=== PATIENT | male | born 1950 | race Caucasian/White ===

== ENCOUNTER → 2020-01-05 | Outpatient (CLI) | payer MEDICARE, OTHER ==
[~2020-01-05] MED LIST: KEFLEX500 MG PO
[2020-01-05 11:46] LABS: HEMATOCRIT 46.4 % (42.0-52.0); HEMOGLOBIN 15.3 g/dl (14.0-18.0); MEAN CELL VOLUME 96.7 fl (80.0-94.0); MEAN CORPUSCULAR HGB 31.9 pg (27.0-31.0); MEAN PLATELET VOLUME 9.5 fl (9.6-12.3); PLATELET COUNT AUTOMATED 164 10*3/uL (130-400); RED CELL DISTRI WIDTH 12.2 % (0-14.5); RETICULOCYTE % 0.96 % (0.50-2.50); WHITE BLOOD COUNT 6.2 10*3/uL (4.8-10.8)
[2020-01-05 12:09] LABS: ALBUMIN 3.9 gm/dl (3.1-4.5); ALKALINE PHOSPHATASE 91 U/L (45-117); BUN 14 mg/dl (7-24); CHLORIDE 107 mmol/L (98-107); CHOLESTEROL 143 mg/dL (<200); CPK 146 U/L (39-308); CREATININE 1.04 mg/dL (0.70-1.30); GAMMA GLUTAMYL TRANSPEPTIDASE 6 U/L (15-85); HDL CHOLESTEROL 61 mg/dl (40-60); IRON 100 ug/dL (65-175); LDL CHOLESTEROL 63 mg/dL (9-159); SGPT/ALT 27 U/L (12-78); SODIUM 140 mmol/L (136-145); TOTAL IRON BINDING CAPACITY 287 ug/dl (250-450); TRIGLYCERIDES 97 mg/dl (<150); URIC ACID 4.2 mg/dL (3.5-7.2); VLDL CHOLESTEROL 19 mg/dL (6-40)
[2020-01-05 12:16] LABS: SGOT/AST 21 IU/L (3-35); TOTAL PROTEIN 7.4 gm/dL (6.4-8.2)
[2020-01-05 13:01] LABS: FERRITIN 62.3 ng/mL (22.0-322.0)
[2020-01-05 13:45] LABS: BILIRUBIN NEGATIVE (NEGATIVE); BLOOD TRACE-INTACT (NEGATIVE); CLARITY CLEAR (CLEAR); COLOR YELLOW (YELLOW); GLUCOSE NEGATIVE (NEGATIVE); KETONE NEGATIVE (NEGATIVE)
[2020-01-05 13:46] LABS: LEUKO ESTERASE NEGATIVE (NEGATIVE); NITRITE NEGATIVE (NEGATIVE); RBC 0-2 rbc/hpf (0-2); UROBILINOGEN 0.2 E.U./dl (0.2-1.0)
[2020-01-05 14:28] LABS: ATYPICAL LYMPHS 2 % (0-0); BASOPHILS 1 % (0-1); TOTAL CELLS COUNTED 100 #CELLS
[2020-01-05 14:31] LABS: PLATELET SUFFICIENCY NORMAL (NORMAL)
[2020-01-06 08:07] LABS: RHEUMATOID ARTHRITIS FACTOR <10.0 IU/mL (0.0-13.9)
[2020-01-06 12:09] LABS: ANTI-DSDNA ANTIBODIES 5 IU/mL (0-9)
[2020-01-06 14:07] LABS: A/G RATIO 1.3 (0.7-1.7); ALPHA-1-GLOBULIN 0.2 g/dL (0.0-0.4); ALPHA-2-GLOBULIN 0.8 g/dL (0.4-1.0); BETA GLOBULIN 0.9 g/dL (0.7-1.3); GAMMA GLOBULIN 1.1 g/dL (0.4-1.8); M-SPIKE Not Observed g/dL (Not Observed)
== END | disposition home or self-care (01) ==
LOC: LAB 10:49
PROVIDERS: Family Medicine
DX: R53.83 Other fatigue (principal); E55.9 Vitamin D deficiency, unspecified; R79.89 Other specified abnormal findings of blood chemistry; Z79.899 Other long term (current) drug therapy

== ENCOUNTER → 2020-05-01 | Outpatient (CLI) | payer MEDICARE, OTHER ==
[2020-05-01 08:02] LABS: BILIRUBIN NEGATIVE (NEGATIVE); BLOOD NEGATIVE (NEGATIVE); CLARITY CLEAR (CLEAR); COLOR YELLOW (YELLOW); EPITHELIAL CELLS 0-2; GLUCOSE NEGATIVE (NEGATIVE); KETONE NEGATIVE (NEGATIVE); LEUKO ESTERASE NEGATIVE (NEGATIVE); NITRITE NEGATIVE (NEGATIVE); UROBILINOGEN 0.2 E.U./dl (0.2-1.0); WBC 0-2 wbc/hpf (0-5)
[2020-05-01 08:04] LABS: BASO % 0.4 % (0.0-1.0); EOS # 0.1 10*3/uL (0.0-0.4); EOS % 2.3 % (1.0-4.0); HEMATOCRIT 47.2 % (42.0-52.0); LYMPH # 2.4 10*3/uL (1.3-4.4); MEAN CELL VOLUME 96.9 fl (80.0-94.0); MEAN CORPUSCULAR HGB CONC 33.1 g/dl (33.0-37.0); MEAN PLATELET VOLUME 9.7 fl (9.6-12.3); MONO # 0.6 10*3/uL (0.1-1.0); MONO % 10.5 % (3.0-9.0); NEUT # 2.2 10*3/uL (2.3-7.9); NEUT % 41.8 % (47.0-73.0); PLATELET COUNT AUTOMATED 150 10*3/uL (130-400); RED BLOOD COUNT 4.87 10*6/uL (4.50-5.90); RED CELL DISTRI WIDTH 12.2 % (0-14.5); WHITE BLOOD COUNT 5.3 10*3/uL (4.8-10.8)
[2020-05-01 08:20] LABS: ALBUMIN 3.7 gm/dl (3.1-4.5); ALKALINE PHOSPHATASE 92 U/L (45-117); BUN 21 mg/dl (7-24); CHLORIDE 108 mmol/L (98-107); CREATININE 1.09 mg/dL (0.70-1.30); POTASSIUM 4.1 mmol/L (3.5-5.1); SGOT/AST 21 IU/L (3-35); SGPT/ALT 27 U/L (12-78); SODIUM 141 mmol/L (136-145); TOTAL PROTEIN 7.2 gm/dL (6.4-8.2)
== END | disposition home or self-care (01) ==
LOC: LAB 07:20 → CT 08:00
PROVIDERS: Urology
DX: D40.0 Neoplasm of uncertain behavior of prostate (principal); R53.83 Other fatigue; R31.9 Hematuria, unspecified

== ENCOUNTER → 2020-06-05 | Outpatient (CLI) | payer MEDICARE, OTHER | END | disposition home or self-care (01) | LOC: COVID19 09:10 | DX: R50.9 Fever, unspecified (principal); Z20.828 Contact with and (suspected) exposure to other viral communicable diseases ==

== ENCOUNTER → 2020-06-09 | Outpatient (CLI) | payer MEDICARE, OTHER ==
[2020-06-09 07:45] LABS: BASO % 0.4 % (0.0-1.0); EOS # 0.1 10*3/uL (0.0-0.4); HEMATOCRIT 44.1 % (42.0-52.0); LYMPH # 1.7 10*3/uL (1.3-4.4); LYMPH % 24.7 % (27.0-41.0); MEAN CELL VOLUME 96.1 fl (80.0-94.0); MEAN CORPUSCULAR HGB 31.4 pg (27.0-31.0); MEAN CORPUSCULAR HGB CONC 32.7 g/dl (33.0-37.0); MEAN PLATELET VOLUME 8.8 fl (9.6-12.3); MONO # 0.6 10*3/uL (0.1-1.0); MONO % 8.3 % (3.0-9.0); NEUT # 4.4 10*3/uL (2.3-7.9); NEUT % 64.3 % (47.0-73.0); PLATELET COUNT AUTOMATED 193 10*3/uL (130-400); RED BLOOD COUNT 4.59 10*6/uL (4.50-5.90); RED CELL DISTRI WIDTH 11.8 % (0-14.5); RETICULOCYTE % 0.75 % (0.50-2.50); WHITE BLOOD COUNT 6.9 10*3/uL (4.8-10.8)
[2020-06-09 08:02] LABS: BILIRUBIN NEGATIVE (NEGATIVE); BLOOD NEGATIVE (NEGATIVE); CLARITY CLEAR (CLEAR); COLOR YELLOW (YELLOW); GLUCOSE NEGATIVE (NEGATIVE); KETONE NEGATIVE (NEGATIVE); LEUKO ESTERASE NEGATIVE (NEGATIVE); MUCOUS 1+; NITRITE NEGATIVE (NEGATIVE); SPECIFIC GRAVITY 1.025 (1.005-1.030); UROBILINOGEN 0.2 E.U./dl (0.2-1.0)
[2020-06-09 08:13] LABS: ALBUMIN 3.4 gm/dl (3.1-4.5); ALKALINE PHOSPHATASE 109 U/L (45-117); BUN 18 mg/dl (7-24); CHLORIDE 108 mmol/L (98-107); CHOLESTEROL 95 mg/dL (<200); CREATININE 1.09 mg/dL (0.70-1.30); HDL CHOLESTEROL 45 mg/dl (40-60); IRON 68 ug/dL (65-175); LDL CHOLESTEROL 35 mg/dL (9-159); POTASSIUM 4.2 mmol/L (3.5-5.1); SGOT/AST 26 IU/L (3-35); SGPT/ALT 34 U/L (12-78); SODIUM 139 mmol/L (136-145); TOTAL IRON BINDING CAPACITY 277 ug/dl (250-450); TOTAL PROTEIN 7.3 gm/dL (6.4-8.2); TRIGLYCERIDES 73 mg/dl (<150); VLDL CHOLESTEROL 15 mg/dL (6-40)
== END | disposition home or self-care (01) ==
LOC: LAB 07:20
PROVIDERS: Family Medicine
DX: R79.89 Other specified abnormal findings of blood chemistry (principal); Z79.899 Other long term (current) drug therapy

== ENCOUNTER → 2021-01-24 | Outpatient (CLI) | payer MEDICARE, OTHER ==
[2021-01-24 16:10] LABS: BILIRUBIN Negative (Negative); BLOOD Negative (Negative); CLARITY Clear (Clear); COLOR Yellow (Yellow); GLUCOSE Negative (Negative); KETONE Negative (Negative); LEUKO ESTERASE Negative (Negative); NITRITE Negative (Negative); PH 6.5 (4.5-8.0); SPECIFIC GRAVITY 1.015 (1.001-1.030); UROBILINOGEN 0.2 E.U./dl (0.0-1.0)
[2021-01-24 16:12] LABS: BASO % 0.5 % (0.0-1.0); EOS # 0.1 10*3/uL (0.0-0.4); EOS % 1.7 % (1.0-4.0); HEMATOCRIT 45.1 % (42.0-52.0); LYMPH # 2.5 10*3/uL (1.3-4.4); LYMPH % 38.4 % (27.0-41.0); MEAN CELL VOLUME 97.4 fl (80.0-94.0); MEAN CORPUSCULAR HGB 32.2 pg (27.0-31.0); MEAN PLATELET VOLUME 9.7 fl (9.6-12.3); MONO # 0.6 10*3/uL (0.1-1.0); MONO % 9.1 % (3.0-9.0); NEUT # 3.2 10*3/uL (2.3-7.9); PLATELET COUNT AUTOMATED 153 10*3/uL (130-400); RED BLOOD COUNT 4.63 10*6/uL (4.50-5.90); RED CELL DISTRI WIDTH 12.1 % (0-14.5); RETICULOCYTE % 0.74 % (0.50-2.50); WHITE BLOOD COUNT 6.4 10*3/uL (4.8-10.8)
[2021-01-24 16:18] LABS: BACTERIA TRACE; EPITHELIAL CELLS 0-2; RBC 0-2 rbc/hpf (0-2); WBC 0-2 wbc/hpf (0-5)
[2021-01-24 16:43] LABS: ALBUMIN 3.9 gm/dl (3.1-4.5); ALKALINE PHOSPHATASE 90 U/L (45-117); BUN 19 mg/dl (7-24); CHLORIDE 108 mmol/L (98-107); CHOLESTEROL 145 mg/dL (<200); CREATININE 1.02 mg/dL (0.70-1.30); GAMMA GLUTAMYL TRANSPEPTIDASE 11 U/L (15-85); HDL CHOLESTEROL 65 mg/dl (40-60); IRON 88 ug/dL (65-175); LDL CHOLESTEROL 69 mg/dL (9-159); POTASSIUM 4.1 mmol/L (3.5-5.1); SGOT/AST 32 IU/L (3-35); SGPT/ALT 37 U/L (12-78); SODIUM 142 mmol/L (136-145); TOTAL PROTEIN 7.2 gm/dL (6.4-8.2); TRIGLYCERIDES 55 mg/dl (<150); VLDL CHOLESTEROL 11 mg/dL (6-40)
[2021-01-24 16:50] LABS: CPK 146 U/L (39-308); TOTAL IRON BINDING CAPACITY 303 ug/dl (250-450)
== END | disposition home or self-care (01) ==
LOC: LAB 14:57
PROVIDERS: ATTEND Family Medicine
DX: Z12.5 Encounter for screening for malignant neoplasm of prostate (principal); E78.5 Hyperlipidemia, unspecified; R79.89 Other specified abnormal findings of blood chemistry; R53.83 Other fatigue; R74.8 Abnormal levels of other serum enzymes

== ENCOUNTER → 2021-05-08 | Outpatient (CLI) | payer MEDICARE, OTHER ==
[2021-05-08 16:26] LABS: BASO % 0.5 % (0.0-1.0); EOS # 0.1 10*3/uL (0.0-0.4); EOS % 2.3 % (1.0-4.0); HEMATOCRIT 43.5 % (42.0-52.0); LYMPH # 2.4 10*3/uL (1.3-4.4); LYMPH % 42.3 % (27.0-41.0); MEAN CELL VOLUME 97.1 fl (80.0-94.0); MEAN CORPUSCULAR HGB 32.6 pg (27.0-31.0); MEAN CORPUSCULAR HGB CONC 33.6 g/dl (33.0-37.0); MEAN PLATELET VOLUME 9.4 fl (9.6-12.3); MONO # 0.7 10*3/uL (0.1-1.0); MONO % 11.6 % (3.0-9.0); NEUT # 2.4 10*3/uL (2.3-7.9); NEUT % 43.1 % (47.0-73.0); PLATELET COUNT AUTOMATED 153 10*3/uL (130-400); RED BLOOD COUNT 4.48 10*6/uL (4.50-5.90); RED CELL DISTRI WIDTH 12.2 % (0-14.5); WHITE BLOOD COUNT 5.7 10*3/uL (4.8-10.8)
[2021-05-08 16:31] LABS: BILIRUBIN Negative (Negative); BLOOD Negative (Negative); CLARITY Clear (Clear); COLOR Yellow (Yellow); GLUCOSE Negative (Negative); KETONE Trace (Negative); LEUKO ESTERASE Negative (Negative); NITRITE Negative (Negative); PH 5.5 (4.5-8.0); SPECIFIC GRAVITY 1.025 (1.001-1.030)
[2021-05-08 16:43] LABS: ALBUMIN 3.4 gm/dl (3.1-4.5); ALKALINE PHOSPHATASE 109 U/L (45-117); BUN 23 mg/dl (7-24); CHLORIDE 108 mmol/L (98-107); CHOLESTEROL 142 mg/dL (<200); CREATININE 0.95 mg/dL (0.70-1.30); GAMMA GLUTAMYL TRANSPEPTIDASE 4 U/L (15-85); IRON 55 ug/dL (65-175); LDL CHOLESTEROL 69 mg/dL (9-159); POTASSIUM 3.9 mmol/L (3.5-5.1); SGOT/AST 18 IU/L (3-35); SGPT/ALT 22 U/L (12-78); SODIUM 141 mmol/L (136-145); TOTAL IRON BINDING CAPACITY 301 ug/dl (250-450); TOTAL PROTEIN 6.9 gm/dL (6.4-8.2); TRIGLYCERIDES 88 mg/dl (<150)
[2021-05-08 16:46] LABS: EPITHELIAL CELLS 0-2
[2021-05-08 16:47] LABS: BACTERIA 1+; MUCOUS 1+
[2021-05-08 16:51] LABS: CPK 134 U/L (39-308)
[2021-05-08 19:40] LABS: FERRITIN 39.5 ng/mL (22.0-322.0); VITAMIN D, 25-HYDROXY 29.3 ng/mL (30-100)
== END | disposition home or self-care (01) ==
LOC: LAB 15:55
PROVIDERS: ATTEND Family Medicine
DX: Z12.5 Encounter for screening for malignant neoplasm of prostate (principal); E55.9 Vitamin D deficiency, unspecified; E79.8 Other disorders of purine and pyrimidine metabolism; E78.5 Hyperlipidemia, unspecified; R53.83 Other fatigue; R79.89 Other specified abnormal findings of blood chemistry

== ENCOUNTER → 2022-07-17 | Outpatient (CLI) | payer MEDICARE, OTHER ==
[2022-07-17 12:52] LABS: BASO % 0.6 % (0.0-1.0); BILIRUBIN Negative (Negative); BLOOD Negative (Negative); CLARITY Clear (Clear); COLOR Yellow (Yellow); EOS % 0.8 % (1.0-4.0); GLUCOSE Negative (Negative); HEMATOCRIT 45.5 % (42.0-52.0); KETONE Negative (Negative); LEUKO ESTERASE Negative (Negative); LYMPH # 1.8 10*3/uL (1.3-4.4); MEAN CELL VOLUME 98.7 fl (80.0-94.0); MEAN CORPUSCULAR HGB CONC 33.4 g/dl (33.0-37.0); MEAN PLATELET VOLUME 9.9 fl (9.6-12.3); MONO # 0.5 10*3/uL (0.1-1.0); MONO % 10.4 % (3.0-9.0); NEUT # 2.8 10*3/uL (2.3-7.9); NITRITE Negative (Negative); PLATELET COUNT AUTOMATED 148 10*3/uL (130-400); RED BLOOD COUNT 4.61 10*6/uL (4.50-5.90); RED CELL DISTRI WIDTH 12.3 % (0-14.5); RETICULOCYTE % 1.11 % (0.50-2.50); SPECIFIC GRAVITY 1.015 (1.001-1.030); UROBILINOGEN 0.2 E.U./dl (0.0-1.0); WHITE BLOOD COUNT 5.2 10*3/uL (4.8-10.8)
[2022-07-17 13:16] LABS: EPITHELIAL CELLS 0-2; WBC 0-2 wbc/hpf (0-5)
[2022-07-17 13:19] LABS: ALKALINE PHOSPHATASE 90 U/L (45-117); BUN 16 mg/dl (7-24); CHLORIDE 108 mmol/L (98-107); CHOLESTEROL 154 mg/dL (<200); CREATININE 1.04 mg/dL (0.70-1.30); GAMMA GLUTAMYL TRANSPEPTIDASE 16 U/L (15-85); IRON 100 ug/dL (65-175); LDL CHOLESTEROL 70 mg/dL (9-159); POTASSIUM 4.4 mmol/L (3.5-5.1); SGOT/AST 23 IU/L (3-35); SGPT/ALT 26 U/L (12-78); SODIUM 140 mmol/L (136-145); TOTAL PROTEIN 7.2 gm/dL (6.4-8.2); TRIGLYCERIDES 107 mg/dl (<150)
[2022-07-17 13:36] LABS: FERRITIN 53.5 ng/mL (22.0-322.0); VITAMIN D, 25-HYDROXY 31.4 ng/mL (30-100)
== END | disposition home or self-care (01) ==
LOC: LAB 12:04
PROVIDERS: ATTEND Family Medicine
DX: Z12.5 Encounter for screening for malignant neoplasm of prostate (principal); E78.5 Hyperlipidemia, unspecified; E55.9 Vitamin D deficiency, unspecified; R79.89 Other specified abnormal findings of blood chemistry; R74.8 Abnormal levels of other serum enzymes; R53.83 Other fatigue

== ENCOUNTER → 2023-02-19 | Outpatient (CLI) | payer MEDICARE, OTHER ==
[2023-02-19 09:01] LABS: BASO % 0.3 % (0.0-1.0); EOS # 0.1 10*3/uL (0.0-0.4); EOS % 0.8 % (1.0-4.0); HEMATOCRIT 46.7 % (42.0-52.0); LYMPH # 2.6 10*3/uL (1.3-4.4); LYMPH % 42.9 % (27.0-41.0); MEAN CELL VOLUME 98.5 fl (80.0-94.0); MEAN CORPUSCULAR HGB 33.1 pg (27.0-31.0); MEAN CORPUSCULAR HGB CONC 33.6 g/dl (33.0-37.0); MEAN PLATELET VOLUME 9.4 fl (9.6-12.3); MONO # 0.6 10*3/uL (0.1-1.0); MONO % 10.6 % (3.0-9.0); NEUT # 2.7 10*3/uL (2.3-7.9); NEUT % 45.2 % (47.0-73.0); PLATELET COUNT AUTOMATED 143 10*3/uL (130-400); RED BLOOD COUNT 4.74 10*6/uL (4.50-5.90); RED CELL DISTRI WIDTH 12.1 % (0-14.5); RETICULOCYTE % 0.99 % (0.50-2.50)
[2023-02-19 09:21] LABS: BILIRUBIN Negative (Negative); BLOOD Negative (Negative); CLARITY Clear (Clear); COLOR Yellow (Yellow); GLUCOSE Negative (Negative); KETONE Negative (Negative); LEUKO ESTERASE Negative (Negative); NITRITE Negative (Negative); PH 6.5 (4.5-8.0); SPECIFIC GRAVITY <= 1.005 (1.001-1.030); UROBILINOGEN 0.2 E.U./dl (0.0-1.0)
[2023-02-19 09:41] LABS: RBC 0-2 rbc/hpf (0-2); WBC 0-2 wbc/hpf (0-5)
[2023-02-19 10:06] LABS: ALKALINE PHOSPHATASE 89 U/L (46-116); BUN 14 mg/dl (9-23); CHLORIDE 105 mmol/L (98-107); CHOLESTEROL 141 mg/dL (<200); GAMMA GLUTAMYL TRANSPEPTIDASE 15 U/L (0-73); LDL CHOLESTEROL 70 mg/dL (9-159); POTASSIUM 4.6 mmol/L (3.4-5.1); SGPT/ALT 17 U/L (10-49); THYROID STIM HORMONE (HS) 2.219 uIU/ml (0.550-4.780); TOTAL PROTEIN 7.2 gm/dL (6.0-8.0); TRIGLYCERIDES 74 mg/dl (<150); VITAMIN D, 25-HYDROXY 34.7 ng/mL (30-100)
== END | disposition home or self-care (01) ==
LOC: LAB 08:41
PROVIDERS: ATTEND Family Medicine
DX: Z12.5 Encounter for screening for malignant neoplasm of prostate (principal); R79.89 Other specified abnormal findings of blood chemistry; E78.5 Hyperlipidemia, unspecified; E55.9 Vitamin D deficiency, unspecified; R53.83 Other fatigue; R74.8 Abnormal levels of other serum enzymes

== ENCOUNTER → 2023-05-08 | Day surgery (SDC) | payer MEDICARE, OTHER ==
[2023-05-06 12:53] LABS: BUN 18 mg/dl (9-23); CHLORIDE 106 mmol/L (98-107); POTASSIUM 4.1 mmol/L (3.4-5.1)
[~2023-05-08] VITALS: Ht 172.7 cm; Wt 74.8 kg
[~2023-05-08] MED LIST changes: +ATORVASTATIN CA40 M1 PO
[2023-05-08 08:25] VITALS: BP 126/68
[2023-05-08 09:37] VITALS: BP 104/58
[2023-05-08 09:52] VITALS: BP 112/64
[2023-05-08 10:06] VITALS: BP 114/64
[2023-05-09 11:07] LABS: ACID FAST SPEC PROCESSING Tissue Grinding (.)
== END ==
LOC: SDC 05-06 08:45
PROVIDERS: ATTEND Orthopaedic Surgery
DX: M20.5X1 Other deformities of toe(s) (acquired), right foot (principal); R22.41 Localized swelling, mass and lump, right lower limb; E78.00 Pure hypercholesterolemia, unspecified

== ENCOUNTER → 2024-01-02 | Outpatient (CLI) | payer MEDICARE, OTHER ==
[2024-01-02 08:34] LABS: BILIRUBIN Negative (Negative); BLOOD Negative (Negative); CLARITY Clear (Clear); COLOR Yellow (Yellow); GLUCOSE Negative (Negative); KETONE Negative (Negative); LEUKO ESTERASE Negative (Negative); NITRITE Negative (Negative); SPECIFIC GRAVITY <= 1.005 (1.001-1.030); UROBILINOGEN 0.2 E.U./dl (0.0-1.0)
[2024-01-02 08:35] LABS: BASO % 0.5 % (0.0-1.0); EOS # 0.1 10*3/uL (0.0-0.4); EOS % 1.5 % (1.0-4.0); HEMATOCRIT 46.9 % (42.0-52.0); LYMPH # 2.4 10*3/uL (1.3-4.4); LYMPH % 36.9 % (27.0-41.0); MEAN CELL VOLUME 96.5 fl (80.0-94.0); MEAN CORPUSCULAR HGB 31.3 pg (27.0-31.0); MEAN CORPUSCULAR HGB CONC 32.4 g/dl (33.0-37.0); MEAN PLATELET VOLUME 9.2 fl (9.6-12.3); MONO # 0.6 10*3/uL (0.1-1.0); MONO % 9.6 % (3.0-9.0); NEUT # 3.4 10*3/uL (2.3-7.9); NEUT % 51.3 % (47.0-73.0); PLATELET COUNT AUTOMATED 178 10*3/uL (130-400); RED BLOOD COUNT 4.86 10*6/uL (4.50-5.90); RED CELL DISTRI WIDTH 13.3 % (0-14.5); RETICULOCYTE % 1.03 % (0.50-2.50); WHITE BLOOD COUNT 6.6 10*3/uL (4.8-10.8)
[2024-01-02 08:52] LABS: EPITHELIAL CELLS 0-2; RBC 0-2 rbc/hpf (0-2)
[2024-01-02 08:58] LABS: VITAMIN D, 25-HYDROXY 30.4 ng/mL (30-100)
[2024-01-02 08:59] LABS: ALKALINE PHOSPHATASE 95 U/L (46-116); BUN 11 mg/dl (9-23); CHLORIDE 104 mmol/L (98-107); CHOLESTEROL 144 mg/dL (<200); GAMMA GLUTAMYL TRANSPEPTIDASE 16 U/L (0-73); LDL CHOLESTEROL 75 mg/dL (9-159); POTASSIUM 4.1 mmol/L (3.4-5.1); SGPT/ALT 18 U/L (5-49); T3 UPTAKE 28.4 % (22.4-36.7); TOTAL PROTEIN 7.4 gm/dL (6.0-8.0); TRIGLYCERIDES 85 mg/dl (<150)
== END | disposition home or self-care (01) ==
LOC: LAB 07:36
PROVIDERS: ATTEND Family Medicine
DX: E78.5 Hyperlipidemia, unspecified (principal); E55.9 Vitamin D deficiency, unspecified; R79.89 Other specified abnormal findings of blood chemistry

== ENCOUNTER → 2024-01-19 | Outpatient (CLI) | payer MEDICARE, OTHER | LOC: US 01:52 | PROVIDERS: ATTEND Family Medicine | DX: R16.0 Hepatomegaly, not elsewhere classified (principal); E78.5 Hyperlipidemia, unspecified ==

== ENCOUNTER → 2024-02-09 | Outpatient (CLI) | payer MEDICARE, OTHER ==
[~2024-02-09] MED LIST changes: +SINCALIDE 1.5 MCG in SODIUM CHLORIDE 0.9% 50 ML IV ONE
== END | disposition home or self-care (01) ==
LOC: NM 01:44
PROVIDERS: ATTEND Family Medicine
DX: R10.84 Generalized abdominal pain (principal)

== ENCOUNTER 2024-07-04 10:09 | Emergency (ER) | payer MEDICARE, OTHER ==
[~2024-07-04] VITALS: Ht 175.2 cm; Wt 77.1 kg
[~2024-07-04 10:09] MED LIST changes: -SINCALIDE 1.5 MCG in SODIUM CHLORIDE 0.9% 50 ML IV ONE
[2024-07-04] MEDS ORDERED: Tdap Vaccine 0.5 ML SYR (Adult Vaccine) IM ONE (11:20)
[2024-07-04] MEDS ORDERED: CEPHALEXIN500 M1 PO (12:49)
[2024-07-04] MEDS ORDERED: NAPROSYN500 MG PO (12:49)
[2024-07-04] MEDS ORDERED: CEPHALEXIN 500 MG CAP PO ONE (12:50)
== END 2024-07-04 13:30 | disposition home or self-care (01) ==
LOC: ED 10:09
DX: S61.432A Puncture wound without foreign body of left hand, initial encounter (principal); S69.92XA Unspecified injury of left wrist, hand and finger(s), initial encounter; E78.00 Pure hypercholesterolemia, unspecified; Z98.890 Other specified postprocedural states; X58.XXXA Exposure to other specified factors, initial encounter; Y93.89 Activity, other specified; Y92.89 Other specified places as the place of occurrence of the external cause; Y99.8 Other external cause status

== ENCOUNTER → 2024-08-09 | Outpatient (CLI) | payer MEDICARE, OTHER ==
[~2024-08-09] MED LIST changes: +CEPHALEXIN500 M1 PO; +NAPROSYN500 MG PO
[2024-08-09 12:46] LABS: BASO % 0.5 % (0.0-1.0); EOS # 0.1 10*3/uL (0.0-0.4); EOS % 0.9 % (1.0-4.0); HEMATOCRIT 44.3 % (42.0-52.0); LYMPH # 2.1 10*3/uL (1.3-4.4); LYMPH % 35.7 % (27.0-41.0); MEAN CORPUSCULAR HGB 32.5 pg (27.0-31.0); MEAN CORPUSCULAR HGB CONC 33.2 g/dl (33.0-37.0); MEAN PLATELET VOLUME 9.4 fl (9.6-12.3); MONO # 0.5 10*3/uL (0.1-1.0); MONO % 8.3 % (3.0-9.0); NEUT # 3.2 10*3/uL (2.3-7.9); NEUT % 54.3 % (47.0-73.0); PLATELET COUNT AUTOMATED 156 10*3/uL (130-400); RED BLOOD COUNT 4.52 10*6/uL (4.50-5.90); RED CELL DISTRI WIDTH 12.6 % (0-14.5); RETICULOCYTE % 1.34 % (0.50-2.50); WHITE BLOOD COUNT 5.9 10*3/uL (4.8-10.8)
[2024-08-09 12:52] LABS: BILIRUBIN Negative (Negative); BLOOD Negative (Negative); CLARITY Clear (Clear); COLOR Yellow (Yellow); GLUCOSE Negative (Negative); KETONE Negative (Negative); LEUKO ESTERASE Negative (Negative); NITRITE Negative (Negative); PH 6.5 (4.5-8.0); SPECIFIC GRAVITY 1.015 (1.001-1.030); UROBILINOGEN 0.2 E.U./dl (0.0-1.0)
[2024-08-09 13:17] LABS: ALKALINE PHOSPHATASE 93 U/L (46-116); BUN 15 mg/dl (9-23); CHLORIDE 105 mmol/L (98-107); CHOLESTEROL 129 mg/dL (<200); GAMMA GLUTAMYL TRANSPEPTIDASE 14 U/L (0-73); LDL CHOLESTEROL 59 mg/dL (9-159); POTASSIUM 4.5 mmol/L (3.4-5.1); SGPT/ALT 14 U/L (5-49); TOTAL PROTEIN 7.1 gm/dL (6.0-8.0); TRIGLYCERIDES 92 mg/dl (<150)
[2024-08-09 13:19] LABS: VITAMIN D, 25-HYDROXY 38.6 ng/mL (30-100)
[2024-08-09 13:49] LABS: EPITHELIAL CELLS 0-2
== END | disposition home or self-care (01) ==
LOC: LAB 12:14
PROVIDERS: ATTEND Family Medicine
DX: Z12.5 Encounter for screening for malignant neoplasm of prostate (principal); R79.89 Other specified abnormal findings of blood chemistry; R53.83 Other fatigue; E78.5 Hyperlipidemia, unspecified; E55.9 Vitamin D deficiency, unspecified

== ENCOUNTER → 2025-03-07 | Outpatient (CLI) | payer MEDICARE, OTHER ==
[2025-03-07 08:04] LABS: BASO % 0.4 % (0.0-1.0); EOS # 0.1 10*3/uL (0.0-0.4); HEMATOCRIT 47.3 % (42.0-52.0); MEAN CELL VOLUME 96.9 fl (80.0-94.0); MEAN CORPUSCULAR HGB 32.2 pg (27.0-31.0); MEAN CORPUSCULAR HGB CONC 33.2 g/dl (33.0-37.0); MEAN PLATELET VOLUME 9.3 fl (9.6-12.3); MONO # 0.6 10*3/uL (0.1-1.0); MONO % 8.8 % (3.0-9.0); NEUT # 3.5 10*3/uL (2.3-7.9); NEUT % 51.8 % (47.0-73.0); PLATELET COUNT AUTOMATED 147 10*3/uL (130-400); RED BLOOD COUNT 4.88 10*6/uL (4.50-5.90); RED CELL DISTRI WIDTH 12.4 % (0-14.5); RETICULOCYTE % 0.91 % (0.50-2.50); WHITE BLOOD COUNT 6.8 10*3/uL (4.8-10.8)
[2025-03-07 08:15] LABS: BILIRUBIN Negative (Negative); BLOOD Negative (Negative); CLARITY Clear (Clear); COLOR Yellow (Yellow); GLUCOSE Negative (Negative); KETONE Negative (Negative); LEUKO ESTERASE Negative (Negative); NITRITE Negative (Negative); UROBILINOGEN 0.2 E.U./dl (0.0-1.0)
[2025-03-07 08:51] LABS: ALKALINE PHOSPHATASE 91 U/L (46-116); BUN 19 mg/dl (9-23); CHLORIDE 103 mmol/L (98-107); CHOLESTEROL 141 mg/dL (<200); GAMMA GLUTAMYL TRANSPEPTIDASE 14 U/L (0-73); LDL CHOLESTEROL 72 mg/dL (9-159); POTASSIUM 4.2 mmol/L (3.4-5.1); SGPT/ALT 16 U/L (5-49); TOTAL PROTEIN 7.3 gm/dL (6.0-8.0); TRIGLYCERIDES 69 mg/dl (<150)
[2025-03-07 11:19] LABS: BACTERIA TRACE; EPITHELIAL CELLS 0-2; MUCOUS TRACE
== END | disposition home or self-care (01) ==
LOC: LAB 07:31
PROVIDERS: ATTEND Family Medicine
DX: R79.89 Other specified abnormal findings of blood chemistry (principal); R53.83 Other fatigue; E78.5 Hyperlipidemia, unspecified

== ENCOUNTER → 2025-10-28 | Outpatient (CLI) | payer MEDICARE, OTHER ==
[2025-10-28 11:06] LABS: BASO # 0.0 10*3/uL (0.0-0.1); BASO % 0.5 % (0.0-1.0); EOS # 0.1 10*3/uL (0.0-0.4); EOS % 0.9 % (1.0-4.0); MEAN CELL VOLUME 98.4 fl (80.0-94.0); MEAN CORPUSCULAR HGB 32.4 pg (27.0-31.0); MEAN PLATELET VOLUME 9.1 fl (9.6-12.3); MONO # 0.6 10*3/uL (0.1-1.0); MONO % 8.4 % (3.0-9.0); NEUT # 3.9 10*3/uL (2.3-7.9); NEUT % 58.4 % (47.0-73.0); NUCLEATED RED BLOOD CELL 0.0 % (0.0-0.0); NUCLEATED RED BLOOD CELL 0.0 10*3/uL (0.0-0.0); PLATELET COUNT AUTOMATED 177 10*3/uL (130-400); RED CELL DISTRI WIDTH 12.1 % (0-14.5); RETICULOCYTE % 0.87 % (0.50-2.50)
[2025-10-28 11:07] LABS: BILIRUBIN Negative (Negative); BLOOD Negative (Negative); CLARITY Clear (Clear); COLOR Yellow (Yellow); KETONE Trace (Negative); LEUKO ESTERASE Trace (Negative); NITRITE Negative (Negative); PH 7.0 (4.5-8.0); SPECIFIC GRAVITY 1.025 (1.001-1.030); UROBILINOGEN 1.0 E.U./dl (0.0-1.0)
[2025-10-28 11:39] LABS: BACTERIA 1+; EPITHELIAL CELLS 0-2; MUCOUS 1+; RBC 0-2 rbc/hpf (0-2)
[2025-10-28 11:40] LABS: BUN 17 mg/dl (9-23); GAMMA GLUTAMYL TRANSFERASE 13 U/L (0-73); LDL CHOLESTEROL 54 mg/dL (9-159); SGPT/ALT 15 U/L (5-49)
[2025-10-28 11:41] LABS: VITAMIN D, 25-HYDROXY 52.3 ng/mL (30-100)
== END | disposition home or self-care (01) ==
LOC: LAB 10:39
PROVIDERS: ATTEND Family Medicine
DX: Z12.5 Encounter for screening for malignant neoplasm of prostate (principal); E78.5 Hyperlipidemia, unspecified; R53.83 Other fatigue; R79.89 Other specified abnormal findings of blood chemistry; E55.9 Vitamin D deficiency, unspecified